=== PATIENT | female | born 1950 | race Caucasian/White ===

== ENCOUNTER → 2017-10-30 | Outpatient (CLI) | payer MEDICARE, BC ==
[~2017-10-30] MED LIST: ATOR10 PO; CRUTCH3 XX; OMEP20ER PO; Ultram50 MG PO
[2017-10-31 13:26] LABS: Stool Occult Blood Guaiac 1 Neg (Neg); Stool Occult Blood Guaiac 2 Neg (Neg)
[2017-10-31 13:27] LABS: Stool Occult Blood Guaiac 3 Neg (Neg)
== END | disposition home or self-care (01) ==
LOC: LAB 08:00
PROVIDERS: Internal Medicine Gastroenterology
DX: Z12.11 Encounter for screening for malignant neoplasm of colon (principal); K57.30 Diverticulosis of large intestine without perforation or abscess without bleeding
CPT/HCPCS: 82270

== ENCOUNTER → 2018-11-15 | Outpatient (CLI) | payer MEDICARE, BC | END | disposition home or self-care (01) | LOC: PLD 09:59 → LAB 09:59 → LAB SHORT 09:59 | DX: D22.71 Melanocytic nevi of right lower limb, including hip (principal) | CPT/HCPCS: 88305 ==

== ENCOUNTER → 2018-11-30 | Outpatient (CLI) | payer MEDICARE, BC | END | disposition home or self-care (01) | LOC: LAB SHORT 15:49 → PLD 15:49 | DX: D22.71 Melanocytic nevi of right lower limb, including hip (principal) | CPT/HCPCS: 88305 ==

== ENCOUNTER → 2018-12-30 | Outpatient (CLI) | payer MEDICARE, BC ==
[2018-12-30 13:58] LABS: Stool Occult Bld Immuno 1 Negative (NEGATIVE); Stool Occult Bld Immuno 2 Negative (NEGATIVE)
== END | disposition home or self-care (01) ==
LOC: LAB 09:00 → LAB SHORT 09:00
PROVIDERS: Internal Medicine
DX: K62.5 Hemorrhage of anus and rectum (principal)
CPT/HCPCS: 82274

== ENCOUNTER → 2019-06-23 | Outpatient (CLI) | payer MEDICARE, BC | END | disposition home or self-care (01) | LOC: PLD 10:43 → LAB SHORT 10:43 | DX: D28.0 Benign neoplasm of vulva (principal); D18.09 Hemangioma of other sites | CPT/HCPCS: 88305 ==

== ENCOUNTER 2019-09-21 07:45 | Day surgery (SDC) | payer MEDICARE, BC ==
[~2019-09-21] VITALS: Ht 165.1 cm; Wt 68.1 kg
[~2019-09-21 07:45] MED LIST changes: +ALBU90OI; +Flonase 0.05% N16 GM; +Sudogest30 MG
== END 2019-09-21 09:34 | disposition home or self-care (01) ==
LOC: ORSCSDS 07:45
PROVIDERS: Internal Medicine Gastroenterology
PROC: 0DB58ZX Excision of Esophagus, Via Natural or Artificial Opening Endoscopic, Diagnostic (ICD-10-PCS; principal; 2019-09-21 09:00)
DX: K22.70 Barrett's esophagus without dysplasia (principal); I10 Essential (primary) hypertension; K58.9 Irritable bowel syndrome, unspecified; Z79.899 Other long term (current) drug therapy
CPT/HCPCS: 88305; J0461; J2405; J2704; J7120

== ENCOUNTER 2022-11-24 08:49 | Day surgery (SDC) | payer MEDICARE, BC ==
[~2022-11-24] VITALS: Ht 165.1 cm; Wt 62.2 kg
[2022-11-24] MEDS ORDERED: METO25ER PO (09:08)
== END 2022-11-24 11:19 | disposition home or self-care (01) ==
LOC: ORSCSDS 08:49
PROVIDERS: Internal Medicine Gastroenterology
PROC: 0DBK8ZX Excision of Ascending Colon, Via Natural or Artificial Opening Endoscopic, Diagnostic (ICD-10-PCS; principal; 2022-11-24 10:30)
PROC: 0DB78ZX Excision of Stomach, Pylorus, Via Natural or Artificial Opening Endoscopic, Diagnostic (ICD-10-PCS; principal; 2022-11-24 10:30)
DX: K22.70 Barrett's esophagus without dysplasia (principal); K21.9 Gastro-esophageal reflux disease without esophagitis; Z12.11 Encounter for screening for malignant neoplasm of colon; D12.2 Benign neoplasm of ascending colon; K57.30 Diverticulosis of large intestine without perforation or abscess without bleeding; K64.8 Other hemorrhoids; K22.2 Esophageal obstruction; I10 Essential (primary) hypertension; Z79.899 Other long term (current) drug therapy
CPT/HCPCS: 88305; J2704; J7120

== ENCOUNTER 2024-10-03 09:19 | Day surgery (SDC) | payer MEDICARE, BC ==
[~2024-10-03] VITALS: Ht 165.1 cm; Wt 67.1 kg
[~2024-10-03 09:19] MED LIST changes: +Lidocaine 1%-Epineph 1:100000 20 ML MDV ONE; +METO25ER PO; +NS 500 ML IV ONE
[2024-10-03] MEDS ORDERED: CICLODAN90 GM TP (09:39)
[2024-10-03] MEDS ORDERED: NS 500 ML IV ONE (09:43)
--- NOTE | 2024-10-03 09:46 | NUR ---
10/03/24 0946 Brunilda Jones TIME OUT AT 0945, 8CC
[2024-10-03] MEDS ORDERED: Midazolam HCl 1MG / ML 2ML Vial ONE (09:54)
[2024-10-03 10:28] VITALS: BP 127/68
== END 2024-10-03 10:37 | disposition home or self-care (01) ==
LOC: ORSCSDS 09:19
PROVIDERS: Orthopaedic Surgery
PROC: 0LN80ZZ Release Left Hand Tendon, Open Approach (ICD-10-PCS; principal; 2024-10-03 10:45)
DX: M65.332 Trigger finger, left middle finger (principal); M65.342 Trigger finger, left ring finger; I10 Essential (primary) hypertension; E03.9 Hypothyroidism, unspecified; J45.909 Unspecified asthma, uncomplicated; E78.5 Hyperlipidemia, unspecified; I44.7 Left bundle-branch block, unspecified; Z79.899 Other long term (current) drug therapy
CPT/HCPCS: J2250; J7040

== ENCOUNTER → 2024-10-07 | Outpatient (CLI) | payer MEDICARE, BC ==
[~2024-10-07] MED LIST changes: +CICLODAN90 GM TP; -Lidocaine 1%-Epineph 1:100000 20 ML MDV ONE; -NS 500 ML IV ONE
[2024-10-07 14:43] LABS: Source, Urine Clean Catch
[2024-10-07 16:56] LABS: Appearance, Urine Clear (Clear); Bilirubin, Urine Neg (Neg); Blood, Urine 1+ (Neg); Color, Urine Yellow (P-Yellow); Glucose Qualitative, Urine Neg (Neg); Ketones, Urine Neg (Neg); Leukocyte Esterase, Urine 3+ (Neg); Nitrite, Urine Pos (Neg); Protein, Urine Neg (Neg); Specific Gravity, Urine 1.005 (1.003-1.022); Urobilinogen, Urine NORM (Normal)
[2024-10-07 17:09] LABS: Bacteria Many /hpf; Red Blood Cells, Urine 0-2 /hpf (0-2); Squamous Epithelial Cells Not Seen /hpf (Few)
== END | disposition home or self-care (01) ==
LOC: LAB SHORT 14:41 → LAB 14:41
PROVIDERS: Internal Medicine
DX: R30.0 Dysuria (principal)
CPT/HCPCS: 81001; 87077; 87086; 87186